=== PATIENT | male | born 1965 | race Caucasian/White ===

== ENCOUNTER 2023-03-12 22:20 | Emergency (ER) | payer BC, SELFPAY ==
[2023-03-12 22:25] VITALS: BP 154/97; PULSE 93; RESP 18; TEMP 36.7; O2SAT 97; BMI 34.7
--- NOTE | 2023-03-12 22:28 | CTR_ITS ---
PROCEDURE INFORMATION: Exam: CT Head Without Contrast Exam date and time: 03/12/2023 11:14 PM Age: 57 years old Clinical indication: Injury or trauma; Fall; Laceration; Consciousness not specified; Without residual foreign body; Forehead and head, generalized; Additional info: Head injury TECHNIQUE: Imaging protocol: Computed tomography of the head without contrast. Radiation optimization: All CT scans at this facility use at least one of these dose optimization techniques: automated exposure control; mA and/or kV adjustment per patient size (includes targeted exams where dose is matched to clinical indication); or iterative reconstruction. REPORTING DATA: Count of CT and Cardiac NM exams in prior 12 months: This patient has received 0 known CTs and 0 known cardiac nuclear medicine studies in the 12 months prior to the current study. COMPARISON: No relevant prior studies available. RADIATION DOSE METRICS: Total DLP (mGy-cm): 1231.68 FINDINGS: Brain: No acute intracranial hemorrhage or mass effect. No definite acute infarct by CT. Cerebral ventricles: Ventricle size is normal for age. Paranasal sinuses: Appearing opacity chronic appearing opacity and calcification/ossification involving the right maxillary sinus. Included paranasal sinuses otherwise appear essentially clear. Mastoid air cells: No significant acute finding. Bones/joints: No definite acute skull fracture. Soft tissues: Evidence for soft tissue injury/scalp hematoma/laceration in the right frontal region. CT/CT head wo con* [id number] IMPRESSION: 1. No acute intracranial hemorrhage or mass effect. 2. Other findings discussed above.
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
[2023-03-12 23:00] VITALS: BP 112/83; PULSE 96; O2SAT 97
[2023-03-12 23:30] VITALS: BP 146/78; PULSE 90; O2SAT 96
[2023-03-12 23:50] VITALS: BP 114/85; PULSE 88; O2SAT 97
== END 2023-03-13 00:15 | disposition home or self-care (01) ==
PROVIDERS: Emergency Provider Emergency Medicine
DX: S00.91XA Abrasion of unspecified part of head, initial encounter (principal); V69.9XXA Occupant (driver) (passenger) of heavy transport vehicle injured in unspecified traffic accident, initial encounter; Y92.410 Unspecified street and highway as the place of occurrence of the external cause; Z79.899 Other long term (current) drug therapy
CPT/HCPCS: 70450; 73030; 99284